=== PATIENT | female | born 1995 | race Caucasian/White ===

== ENCOUNTER 2023-07-06 06:11 | Inpatient (IN) | payer OTHER, SELFPAY ==
[2023-07-06 06:20] VITALS: BMI 29.3
[2023-07-06 06:41] VITALS: BP 119/68
[2023-07-06 07:09] LABS: % Basophils 0.5 % (0-2); % Eosinophils 0.6 % (0-6); % Immature Granulocytes 0.5 % (0-0.5); % Lymphocytes 21.8 % (20.5-51.1); % Monocytes 6.7 % (1.7-9.3); % Neutrophils 69.9 % (42.2-75.2); Absolute Basophils 0.1 10^3/uL (0-0.2); Absolute Eosinophils 0.1 10^3/uL (0-0.7); Absolute Immature Granulocytes 0.1 10^3/uL (0-0.05); Absolute Lymphocytes 2.1 10^3/uL (1.2-3.4); Absolute Monocytes 0.7 10^3/uL (0.1-0.6); Absolute Neutrophils 6.8 10^3/uL (1.4-6.5); Hematocrit 31.1 % (37.0-47.0); Hemoglobin 10.5 g/dL (12.0-16.0); Mean Corp Hgb Conc. 33.8 g/dL (33.0-37.0); Mean Corpuscular Hgb 26.1 pg (27.0-31.0); Mean Corpuscular Volume 77.2 fL (81.0-99.0); Mean Platelet Volume 10.7 fL (7.4-10.4); Nucleated Red Blood Cells % 0 %; Platelet Count 286 10^3/uL (130-400); Red Blood Cell Count 4.03 10^6/uL (4.20-5.40); Red Cell Dist. Width 14.2 % (11.5-14.5); White Blood Cell Count 9.7 10^3/uL (4.8-10.8)
[2023-07-06] MEDS: SUBLIMAZE 100 MCG EPIDURAL (08:13)
[2023-07-06] MEDS: FENTANYL/BUPIVACAINE 100 EPIDURAL (08:13)
[2023-07-06 09:24] LABS: Glucose - Point of Care 84 mg/dl (70-99)
[2023-07-06] MEDS: PITOCIN 30 UNITS/NSS 500 ML IV (09:45)
[2023-07-06] MEDS: MOTRIN 600 MG PO (20:19)
[2023-07-07 05:24] LABS: Hematocrit 28.3 % (37.0-47.0); Hemoglobin 9.2 g/dL (12.0-16.0)
[2023-07-07] MEDS: LEXAPRO 20 MG PO (08:06)
[2023-07-07] MEDS: MOTRIN 600 MG PO (20:40)
[2023-07-08] MEDS: FEOSOL 325 MG PO (08:17)
[2023-07-08] MEDS: LEXAPRO 20 MG PO (08:17)
[2023-07-10 14:49] LABS: Syphilis/T. pallidum Ab Reflex Negative (Negative)
== END 2023-07-08 12:55 | disposition home or self-care (01) | DRG 769 ==
LOC: LDRP 06:11
PROVIDERS: Obstetrics & Gynecology; ADMITTING PHYSICIAN Obstetrics & Gynecology
PROC: 0KQM0ZZ Repair Perineum Muscle, Open Approach (ICD-10-PCS; 2023-07-06)
DX: O70.1 Second degree perineal laceration during delivery (principal); Z3A.39 39 weeks gestation of pregnancy; Z37.0 Single live birth
CPT/HCPCS: 36415; 82962; 85014; 85018; 85025; 86780; 86850; 86900; 86901; 99406